=== PATIENT | male | born 1935 | race Caucasian/White ===

== ENCOUNTER 2017-03-17 15:57 | Emergency (ER) | payer MEDICARE ==
[~2017-03-17 15:57] MED LIST: ACETIC ACID15 M1 OT; ARTIFICIAL TEAR15 M8 OP; ASPIRIN325 M3 PO; ATROVENT15 ML; BACITRACIN-POL3.5 GM OP; CONGESTI PO; D3-20002000 UNIT PO; DALIRESP500 MC1 PO; DOXYCYCLINE HY100 M5 PO; ENDUR ACIN PO; IPRATROPIUM BRO15 M1; KEFLEX500 M4 PO; LASIX20 M1 PO; METAMUCIL660 GM PO; METOPROLOL TART25 M1 PO; MILK OF MAGNESIA PO; MIRALAX17 G2 PO; MYTAB GAS80 M1 PO; NEURONTIN300 M1 PO; NORTRIPTYLINE H10 M1 PO; POTASSIUM CHLO10 ME2 PO; PRAVACHOL80 M1 PO; PREDNISONE10 M1 PO; PROAIR HFA8.5 GM INH; SPIRIVA18 MC1 INH; SYMBICORT 160-1 PUFF INH; TYLENOL325 M2 PO; [UNRECOGNIZED DRUG - OTHER] TP
[2017-03-17 16:54] LABS: BASO % 0.2 % (0-2); EOS % 1.4 % (0-7); EOSINOPHIL ABSOLUTE COUNT 0.1 tho/cmm (0.0-0.7); HCT-HEMATOCRIT 41.2 % (36.0-53.5); HGB-HEMOGLOBIN 13.3 gm/dl (13.5-17.0); IMMATURE GRANULOCYTES ABSOLUTE 0.02 tho/cmm (0-0.03); IMMATURE GRANULOCYTES PERCENT 0.4 % (0-0.3); LYMPH % 13.2 % (20-45); LYMPH ABSOLUTE COUNT 0.7 tho/cmm (0.8-4.5); MCH (MEAN CORPUSCULAR HGB) 30.6 pg (28.0-32.0); MCHC MEAN CORPUSCULAR HGB CONC 32.3 % (32.0-36.0); MCV (MEAN CELL VOLUME) 94.9 fl (82.0-96.0); MEAN PLATELET VOLUME 9.8 cmc (9.4-12.4); MONO % 6.1 % (0-12); MONOCYTE ABSOLUTE COUNT 0.3 tho/cmm (0.0-1.2); NEUTROPHIL ABSOLUTE COUNT 4.4 tho/cmm (1.6-8.0); NEUTROPHIL-AUTOMATED 4.4 tho/cmm (1.6-8.0); NEUTROPHILS % 78.7 % (40-80); PLATELET COUNT 162 tho/cmm (150-450); RED BLOOD COUNT 4.34 mil/cmm (4.40-5.70); RED CELL DISTRIBUTION WIDTH 13.8 % (12.4-16.4); WHITE BLOOD COUNT 5.5 tho/cmm (4.0-10.0)
[2017-03-17 17:05] LABS: ANION GAP 12 mmol/L (0-20); BLOOD UREA NITROGEN 23 mg/dl (6-24); CALCIUM 9.1 mg/dl (8.5-10.5); CARBON DIOXIDE-VENOUS 33 mmol/L (22-32); CHLORIDE 104 mmol/l (96-110); CREATININE 1.54 mg/dl (0.60-1.30); GLUCOSE 97 mg/dL (70-110); POTASSIUM 4.6 mmol/L (3.7-5.1); SODIUM 144 mmol/L (135-145); eGFR VALUE FOR BLACK 48 mL/Min
[2017-03-17] MEDS ORDERED: KEFLEX500 M4 PO (17:08)
[2017-04-06] MEDS ORDERED: ACETIC ACID 2% OT (11:19)
[2017-04-06] MEDS ORDERED: ASPIRIN EC81 MG PO (11:20)
[2017-04-06] MEDS ORDERED: LASIX20 M1 PO (11:21)
[2017-04-06] MEDS ORDERED: HYDROCORTISON28.4 G9 TP (11:23)
[2017-04-06] MEDS ORDERED: IPRATROPIUM BRO15 M1 (11:25)
[2017-04-06] MEDS ORDERED: POTASSIUM CHLO10 ME2 PO (11:26)
[2017-06-06] MEDS ORDERED: NORCO 5-325 TA1 EACH PO (14:58)
== END 2017-03-17 17:14 ==
LOC: EDMED 15:57
PROVIDERS: Emergency Medicine
DX: S81.802A Unspecified open wound, left lower leg, initial encounter (principal); I10 Essential (primary) hypertension; I25.10 Atherosclerotic heart disease of native coronary artery without angina pectoris; E78.5 Hyperlipidemia, unspecified; Z86.73 Personal history of transient ischemic attack (TIA), and cerebral infarction without residual deficits; Z85.118 Personal history of other malignant neoplasm of bronchus and lung; Z98.890 Other specified postprocedural states; Z91.041 Radiographic dye allergy status; Z87.891 Personal history of nicotine dependence; W01.0XXA Fall on same level from slipping, tripping and stumbling without subsequent striking against object, initial encounter

== ENCOUNTER 2017-03-28 10:39 | Emergency (ER) | payer OTHER, MEDICARE ==
[2017-03-28] MEDS ORDERED: KEFLEX500 M4 PO (11:24)
[2017-03-28 12:22] LABS: BASO % 0.5 % (0-2); EOS % 1.4 % (0-7); EOSINOPHIL ABSOLUTE COUNT 0.1 tho/cmm (0.0-0.7); HCT-HEMATOCRIT 44.1 % (36.0-53.5); HGB-HEMOGLOBIN 14.3 gm/dl (13.5-17.0); IMMATURE GRANULOCYTES ABSOLUTE 0.03 tho/cmm (0-0.03); IMMATURE GRANULOCYTES PERCENT 0.5 % (0-0.3); LYMPH ABSOLUTE COUNT 0.9 tho/cmm (0.8-4.5); MCH (MEAN CORPUSCULAR HGB) 30.8 pg (28.0-32.0); MCHC MEAN CORPUSCULAR HGB CONC 32.4 % (32.0-36.0); MEAN PLATELET VOLUME 9.5 cmc (9.4-12.4); MONO % 6.7 % (0-12); MONOCYTE ABSOLUTE COUNT 0.4 tho/cmm (0.0-1.2); NEUTROPHIL ABSOLUTE COUNT 4.8 tho/cmm (1.6-8.0); NEUTROPHIL-AUTOMATED 4.8 tho/cmm (1.6-8.0); NEUTROPHILS % 76.9 % (40-80); PLATELET COUNT 185 tho/cmm (150-450); RED BLOOD COUNT 4.64 mil/cmm (4.40-5.70); WHITE BLOOD COUNT 6.3 tho/cmm (4.0-10.0)
[2017-03-28 12:33] LABS: ANION GAP 9 mmol/L (0-20); BLOOD UREA NITROGEN 22 mg/dl (6-24); CARBON DIOXIDE-VENOUS 34 mmol/L (22-32); CHLORIDE 101 mmol/l (96-110); CREATININE 1.46 mg/dl (0.60-1.30); GLUCOSE 147 mg/dL (70-110); POTASSIUM 4.4 mmol/L (3.7-5.1); SODIUM 140 mmol/L (135-145); eGFR VALUE FOR BLACK 51 mL/Min
[2017-03-28] MEDS ORDERED: BACTRIM DS TAB1 EAC2 PO (13:36)
[2017-04-06] MEDS ORDERED: ACETIC ACID 2% OT (11:19)
[2017-04-06] MEDS ORDERED: ASPIRIN EC81 MG PO (11:20)
[2017-04-06] MEDS ORDERED: LASIX20 M1 PO (11:21)
[2017-04-06] MEDS ORDERED: HYDROCORTISON28.4 G9 TP (11:23)
[2017-04-06] MEDS ORDERED: IPRATROPIUM BRO15 M1 (11:25)
[2017-04-06] MEDS ORDERED: POTASSIUM CHLO10 ME2 PO (11:26)
[2017-06-06] MEDS ORDERED: NORCO 5-325 TA1 EACH PO (14:58)
== END 2017-03-28 13:57 ==
LOC: EDMED 10:39
PROVIDERS: Physician Assistant
DX: S81.802D Unspecified open wound, left lower leg, subsequent encounter (principal); S81.802A Unspecified open wound, left lower leg, initial encounter; L03.116 Cellulitis of left lower limb; I50.9 Heart failure, unspecified; I11.0 Hypertensive heart disease with heart failure; I25.10 Atherosclerotic heart disease of native coronary artery without angina pectoris; I25.2 Old myocardial infarction; J44.9 Chronic obstructive pulmonary disease, unspecified; Z85.118 Personal history of other malignant neoplasm of bronchus and lung; Z86.73 Personal history of transient ischemic attack (TIA), and cerebral infarction without residual deficits; Z87.891 Personal history of nicotine dependence; Z99.81 Dependence on supplemental oxygen; Z79.899 Other long term (current) drug therapy; X58.XXXD Exposure to other specified factors, subsequent encounter